=== PATIENT | female | born 1985 | race Hispanic/Latino ===

== ENCOUNTER 2021-01-29 09:40 | Emergency (ER) | payer OTHER, SELFPAY ==
[2021-01-29] MEDS ORDERED: predniSONE 20 MG TAB ONE (12:56)
[2021-01-29] MEDS ORDERED: diphenhydrAMINE 25 MG CAP ONE (12:56)
[2021-01-29] MEDS ORDERED: Famotidine 20 MG TAB ONE (12:56)
== END 2021-01-29 14:03 | disposition home or self-care (01) ==
LOC: ERS 09:40
DX: L50.0 Allergic urticaria (principal); R07.9 Chest pain, unspecified; Z79.899 Other long term (current) drug therapy
CPT/HCPCS: 93005; J7512; Q0163